=== PATIENT | female | born 1950 ===

== ENCOUNTER → 2017-11-02 | Emergency (ER) | payer OTHER ==
[~2017-11-02] VITALS: Ht 160 cm; Wt 62.6 kg
[~2017-11-02] MED LIST: BENADRYL50 MG PO; CLONAZEPAM1 MG; MECLIZINE HCL25 MG PO; MEDROLPACK PO; NORVASC10 MG
== END | disposition home or self-care (01) ==
LOC: ER 01:24
DX: R42 Dizziness and giddiness (principal); T50.995A Adverse effect of other drugs, medicaments and biological substances, initial encounter; Y92.89 Other specified places as the place of occurrence of the external cause